=== PATIENT | female | born 1965 | race Caucasian/White ===

== ENCOUNTER 2020-12-18 12:48 | Emergency (ER) | payer BC ==
[~2020-12-18] VITALS: Ht 167.6 cm; Wt 97.5 kg
--- NOTE | 2020-12-18 12:48 | NUR ---
PT BIB SELF C/O CHEST PAIN PRESSURE LIKE RADIATES TO L SHOULDER STARTED LAST NIGHT. PT IS AAOX4, NOT IN RESPIRATORY DISTRESS, HOOKED TO BENCH WORKER APPRENTICE, KEPT RESTED AND COMFORTABLE. WILL CONTINUE TO MONITOR.
--- NOTE | 2020-12-18 12:50 | NUR ---
AT BEDSIDE FOR EVAL.
--- NOTE | 2020-12-18 12:56 | NUR ---
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
--- NOTE | 2020-12-18 13:01 | NUR ---
CALLED [facility]
[2020-12-18] MEDS ORDERED: ASPIRIN 325 MG TABLET ONE (13:03)
--- NOTE | 2020-12-18 13:04 | NUR ---
SENT FAX AT [phone] TO [place] AT [facility] FOR TRANSFER
[2020-12-18] MEDS ORDERED: ONDANSETRON HCL/PF 4 MG/2 ML VIAL ONE (13:08)
[2020-12-18] MEDS ORDERED: MORPHINE SULFATE INJ 2 MG/ML DISP.SYRIN ONE ×2 (13:09→18:15)
[2020-12-18 13:13] LABS: HEMOGLOBIN 14.6 g/dL (11.5-14.8); MONOCYTES # (AUTO) 0.9 K/uL (0.1-1.30); NEUTROPHILS # (AUTO) 10.1 K/uL (1.8-8.9)
--- NOTE | 2020-12-18 13:16 | NUR ---
covid swab collected and sent to lab.
--- NOTE | 2020-12-18 13:16 | NUR ---
SPOKE WITH [place] FROM [facility] AND THEIR ELECTROSTATIC PAINTER, DR. MCFARLAND, STATES THAT IT IS NOT A STEMI
[2020-12-18 13:18] LABS: BASOPHILS # (AUTO) 0.1 K/uL (0.0-0.2); BASOPHILS % (AUTO) 0.6 % (0.0-2.0); EOSINOPHILS % (AUTO) 0.1 % (0.0-6.0); HEMATOCRIT 43 % (33-45); LYMPHOCYTES # (AUTO) 1.6 K/uL (0.8-4.8); LYMPHOCYTES % (AUTO) 12.4 % (20.0-44.0); MEAN CORPUSCULAR HGB CONC 34 g/dl (31.0-36.0); MEAN CORPUSCULAR VOLUME 94 fL (82-100); NEUTROPHILS % (AUTO) 79.9 % (43.0-81.0); PLATELET COUNT (AUTO) 271 K/uL (150-450); RED BLOOD CELL COUNT(AUTO) 4.56 MIL/uL (4.0-5.2); WHITE BLOOD COUNT (AUTO) 12.6 K/uL (4.3-11.0)
[2020-12-18 13:25] LABS: CALCIUM, SERUM 8.7 mg/dL (8.5-10.1); CARBON DIOXIDE 28 mmol/L (21-32); CHLORIDE 101 mmol/L (98-107); CREATININE 0.8 mg/dL (0.6-1.3); GLUCOSE 116 mg/dL (74-106); POTASSIUM 3.6 mmol/L (3.5-5.1); SODIUM SERUM 140 mmol/L (136-145); UREA NITROGEN, BLOOD 8 mg/dL (7-18)
[2020-12-18] MEDS ORDERED: ASPIRIN 325 MG TABLET PO ONE (13:30)
[2020-12-18] MEDS ORDERED: MORPHINE SULFATE INJ 2 MG/ML DISP.SYRIN IV ONE ×2 (13:30→18:30)
[2020-12-18] MEDS ORDERED: ONDANSETRON HCL/PF 4 MG/2 ML VIAL IV ONE (13:30)
--- NOTE | 2020-12-18 13:37 | NUR ---
Spoke to [facility] and said that they don't do emergency stemi transfer, MD notified and aware.
[2020-12-18 13:41] LABS: ALANINE AMINOTRANSFERASE 49 U/L (12-78); ALBUMIN 4.2 g/dL (3.4-5.0); ALKALINE PHOSPHATASE 114 U/L (46-116); ASPARTATE AMINOTRANSFERASE 26 U/L (15-37); BILIRUBIN,DIRECT 0.3 mg/dL (0.0-0.2); BILIRUBIN,TOTAL 1.2 mg/dL (0.2-1.0); TOTAL PROTEIN, SERUM 7.6 g/dL (6.4-8.2)
[2020-12-18] MEDS ORDERED: IV NS 0.9% 250 ML IV ONE (13:46)
[2020-12-18] MEDS ORDERED: IOHEXOL-350 100 ML VIAL IV ONE (13:46)
--- NOTE | 2020-12-18 13:51 | NUR ---
patient taken to ct accompanied by [employer] in no distress.
--- NOTE | 2020-12-18 14:02 | NUR ---
patient came back from ct.
--- NOTE | 2020-12-18 14:11 | NUR ---
train control electronic technician at bedside for 2D echo.
--- NOTE | 2020-12-18 14:25 | NUR ---
received a call from [facility] binder caser Emmanuel and report given, per Emmanuel will call for peer to peer report.
--- NOTE | 2020-12-18 18:14 | NUR ---
ACCEPTED AT [facility] ROOM 2323 CALL FOR REPORT AT [phone], TRANSPORT ETA IS [phone]
--- NOTE | 2020-12-18 18:25 | NUR ---
Report given to Luann ORTIZ for georgina.
[2020-12-18 19:05] VITALS: BP 140/75
--- NOTE | 2020-12-18 19:05 | NUR ---
rec'd report from velasquez bonilla for georgina
--- NOTE | 2020-12-18 19:17 | NUR ---
pt placed on 2L o2 via nc for comfort
--- NOTE | 2020-12-18 19:54 | NUR ---
gave report to [facility]
== END 2020-12-18 19:54 | disposition short-term general hospital (02) ==
LOC: ER 12:50
DX: I20.0 Unstable angina (principal); I11.0 Hypertensive heart disease with heart failure; I50.9 Heart failure, unspecified; R00.0 Tachycardia, unspecified; I44.7 Left bundle-branch block, unspecified; Z20.822 Contact with and (suspected) exposure to COVID-19; R79.1 Abnormal coagulation profile
CPT/HCPCS: 36415; 71045; 71275; 80048; 80076; 83880; 84484 ×2; 85025; 85378; 85610; 85730; 87426; 93005; 93307; 96374; 96375; 96376; 99291; C9803; J2270 ×2; J2405; J7050; Q9967